=== PATIENT | female | born 1970 | race Caucasian/White ===

== ENCOUNTER 2018-03-28 16:58 | Emergency (ER) | payer MEDICAID ==
[~2018-03-28] VITALS: Ht 162.6 cm; Wt 96.2 kg
[2018-03-28 17:32] VITALS: BP 163/76
[2018-03-28] MEDS ORDERED: LIDOcaine 5% patch TP STA (17:49)
[2018-03-28] MEDS ORDERED: ketorolac trometh inj. 60 MG/2 ML VIAL IM ONE (17:50)
[2018-03-28] MEDS ORDERED: METH4TAB81 PO (17:57)
[2018-03-28] MEDS ORDERED: BACL10TA PO (17:57)
== END 2018-03-28 18:08 | disposition home or self-care (01) ==
LOC: ER 16:59
DX: M54.5 Low back pain (principal); Z88.0 Allergy status to penicillin; Z88.5 Allergy status to narcotic agent; Z88.8 Allergy status to other drugs, medicaments and biological substances; X50.3XXA Overexertion from repetitive movements, initial encounter; Y93.89 Activity, other specified; Y92.89 Other specified places as the place of occurrence of the external cause; Y99.8 Other external cause status
CPT/HCPCS: 96372; 99283; J1885